=== PATIENT | female | born 1980 | race Caucasian/White ===

== ENCOUNTER → 2025-05-31 | Day surgery (SDC) | payer MEDICAID ==
[~2025-05-31] VITALS: Ht 157.5 cm; Wt 87.5 kg
[~2025-05-31] MED LIST: ACETAMINOPHEN 1,000MG/100ML PREMIX IV PRN; ACETAMINOPHEN WITH CODEINE 300/30MG TABLET PO NR; BUPIVACAINE HCL/PF 0.5% (5MG/ML) 10ML ONE; FAMOTIDINE 20MG/2ML VIAL IV PRN; HYDRALAZINE 20MG/ML VIAL IV PRN; HYDROMORPHONE HCL/PF 1MG/ML INJ IV PRN; LABETALOL 5MG/ML 4ML INJ IV PRN; LACTATED RINGERS 1,000 ML IV SCH; MEPERIDINE HCL/PF 25MG/ML CPJ IV PRN; MULT-622 PO; ONDANSETRON HCL 4MG/2ML INJ IV PRN; SKIN ADHESIVE 0.7 GM EA TOP ONE
[2025-05-31 07:52] LABS: UCG KIT EXPIRATION DATE 4-8-27; UCG KIT LOT# 0000994099; UCG SCREEN NEGATIVE
== END | disposition home or self-care (01) ==
LOC: OR 06:38
PROVIDERS: ATTEND Surgery
DX: K80.10 Calculus of gallbladder with chronic cholecystitis without obstruction (principal); Z79.899 Other long term (current) drug therapy; Z98.890 Other specified postprocedural states
CPT/HCPCS: 47562; 81025; 88304; J0665; J7030; A4606; A4217